=== PATIENT | female | born 1935 | race Caucasian/White ===

== ENCOUNTER 2021-12-28 14:36 | Observation (INO) | payer OTHER ==
[2021-12-28 14:59] VITALS: BMI 34.9
[2021-12-28] MEDS ORDERED: ACETAMINOPHEN 1000 MG/100 ML BAG IVPB ONE (16:08)
[2021-12-28 16:33] LABS: BASO % 0.4 % (0-2.0); EOS % 4.5 % (0-4.5); HEMATOCRIT 22.7 % (32.4-45.2); HEMOGLOBIN 7.1 GM/dL (10.7-15.3); LYMPH % 18.6 % (8-40); MCH 28.7 pg (25.7-33.7); MCHC 31.1 g/dl (32.0-36.0); MEAN CELL VOLUME 92.4 fl (80-96); MEAN PLT VOLUME 7.3 fl (7.5-11.1); MONO % 9.7 % (3.8-10.2); NEUT % 66.8 % (42.8-82.8); PLATELET COUNT 212 10^3/uL (134-434); RBC 2.46 M/mm3 (3.60-5.2); RDW 15.6 % (11.6-15.6); WHITE BLOOD COUNT 5.3 K/mm3 (4.0-10.0)
[2021-12-28] MEDS ORDERED: ACETAMINOPHEN INJECTION 100 ML IVPB ONE (16:35)
[2021-12-28 16:38] LABS: CALCIUM 8.7 mg/dL (8.5-10.1)
[2021-12-28 16:39] LABS: ALBUMIN 3.8 g/dl (3.4-5.0); BLOOD UREA NITROGEN 36.6 mg/dL (7-18)
[2021-12-28 16:41] LABS: INR 1.13 (0.83-1.09)
[2021-12-28 16:42] LABS: CREATININE 1.9 mg/dL (0.55-1.3)
[2021-12-28 16:44] LABS: BILIRUBIN,TOTAL 0.3 mg/dL (0.2-1); TOT PROT 7.1 g/dl (6.4-8.2)
[2021-12-28 16:47] LABS: N-TERMINAL BNP 2386.3 pg/ml (5-450)
[2021-12-29 08:29] LABS: BASO % 0.7 % (0-2.0); EOS % 6.5 % (0-4.5); HEMATOCRIT 27.4 % (32.4-45.2); HEMOGLOBIN 8.9 GM/dL (10.7-15.3); LYMPH % 27.7 % (8-40); MCH 29.4 pg (25.7-33.7); MCHC 32.6 g/dl (32.0-36.0); MEAN CELL VOLUME 90.3 fl (80-96); MEAN PLT VOLUME 7.4 fl (7.5-11.1); MONO % 13.7 % (3.8-10.2); NEUT % 51.4 % (42.8-82.8); PLATELET COUNT 173 10^3/uL (134-434); RBC 3.03 M/mm3 (3.60-5.2); RDW 15.1 % (11.6-15.6); WHITE BLOOD COUNT 5.2 K/mm3 (4.0-10.0)
[2021-12-29 08:39] LABS: ALBUMIN 3.7 g/dl (3.4-5.0)
[2021-12-29 08:40] LABS: BLOOD UREA NITROGEN 32.2 mg/dL (7-18); CALCIUM 8.7 mg/dL (8.5-10.1)
[2021-12-29 08:43] LABS: CREATININE 1.6 mg/dL (0.55-1.3)
[2021-12-29 08:45] LABS: BILIRUBIN,TOTAL 0.7 mg/dL (0.2-1); TOT PROT 6.6 g/dl (6.4-8.2)
[2021-12-29] MEDS ORDERED: ACETAMINOPHEN 500 MG TABLET (FP) PO PRN (11:17)
[2021-12-29] MEDS ORDERED: MAG HYDROX/AL HYDROX/SIMETH 30 ML UNIT-DOSE CUP PO ONE (11:30)
[2021-12-29 18:54] VITALS: BP 148/75; PULSE 72; TEMP 98.2
== END 2021-12-29 19:09 ==
LOC: JER 14:36 → JERBED 18:37 → J5S 12-29 00:10
PROVIDERS: ADMIT Internal Medicine; ATTEND Internal Medicine
PROC: 30233N1 Transfusion of Nonautologous Red Blood Cells into Peripheral Vein, Percutaneous Approach (ICD-10-PCS; principal; 2021-12-28)
PROC: 3E033NZ Introduction of Analgesics, Hypnotics, Sedatives into Peripheral Vein, Percutaneous Approach (ICD-10-PCS; 2021-12-28)
DX: K21.9 Gastro-esophageal reflux disease without esophagitis (principal); E03.9 Hypothyroidism, unspecified; I10 Essential (primary) hypertension; E11.9 Type 2 diabetes mellitus without complications; F25.9 Schizoaffective disorder, unspecified; F32.A Depression, unspecified; J45.909 Unspecified asthma, uncomplicated; Z88.0 Allergy status to penicillin; Z88.8 Allergy status to other drugs, medicaments and biological substances
CPT/HCPCS: 36415; 36430; 71045-TC-FY; 80053; 82272; 83880; 84484; 85025; 85610; 85730; 86850; 86900; 86901; 86922; 93005; 93010; 96374; 99285-25; C9803-CS; G0378; P9058; U0003; U0005

== ENCOUNTER 2022-01-11 18:33 | Inpatient (IN) | payer OTHER ==
[2022-01-11 20:46] LABS: BASO % 0.4 % (0-2.0); EOS % 6.5 % (0-4.5); HEMATOCRIT 26.2 % (32.4-45.2); HEMOGLOBIN 8.4 GM/dL (10.7-15.3); LYMPH % 20.9 % (8-40); MCH 29.5 pg (25.7-33.7); MCHC 32.2 g/dl (32.0-36.0); MEAN CELL VOLUME 91.4 fl (80-96); MEAN PLT VOLUME 7.5 fl (7.5-11.1); MONO % 12.2 % (3.8-10.2); PLATELET COUNT 264 10^3/uL (134-434); RBC 2.87 M/mm3 (3.60-5.2); RDW 16.4 % (11.6-15.6); RETICULOCYTES 2.69 % (0.5-1.5); WHITE BLOOD COUNT 5.6 K/mm3 (4.0-10.0)
[2022-01-11 20:56] LABS: CALCIUM 8.4 mg/dL (8.5-10.1); INR 1.35 (0.83-1.09); PROTHROMBIN TIME (PATIENT) 15.6 SEC (9.7-13.0)
[2022-01-11 20:57] LABS: ALBUMIN 3.7 g/dl (3.4-5.0); BLOOD UREA NITROGEN 56.6 mg/dL (7-18)
[2022-01-11 20:58] LABS: ACTIVATED PTT 36.5 SECONDS (25.2-36.5)
[2022-01-11 21:00] LABS: CREATININE 1.9 mg/dL (0.55-1.3)
[2022-01-11 21:02] LABS: BILIRUBIN,TOTAL 0.2 mg/dL (0.2-1); TOT PROT 6.7 g/dl (6.4-8.2)
[2022-01-11 23:40] LABS: URINE APPEARANCE CLEAR; URINE BILIRUBIN NEGATIVE (NEGATIVE); URINE COLOR YELLOW; URINE GLUCOSE (UA) NEGATIVE (NEGATIVE); URINE KETONE NEGATIVE (NEGATIVE); URINE LEUK ESTERASE NEGATIVE (NEGATIVE); URINE NITRITE NEGATIVE (NEGATIVE); URINE PROTEIN NEGATIVE (NEGATIVE); URINE UROBILINOGEN 0.2 mg/dL (0.2-1.0)
[2022-01-12] MEDS ORDERED: PRAMIPEXOLE DIHYDROCHLORIDE 0.5 MG TABLET PO ONE (02:29)
[2022-01-12] MEDS: hydrALAZINE HCL 50 MG TABLET (FP) PO SCH ×3 (06:46→22:18)
[2022-01-12] MEDS: GABAPENTIN 100 MG CAPSULE PO SCH ×3 (06:46→22:16)
[2022-01-12 09:32] LABS: BASO % 0.5 % (0-2.0); EOS % 7.7 % (0-4.5); HEMATOCRIT 25.6 % (32.4-45.2); HEMOGLOBIN 8.2 GM/dL (10.7-15.3); LYMPH % 23.6 % (8-40); MCH 28.8 pg (25.7-33.7); MCHC 31.9 g/dl (32.0-36.0); MEAN CELL VOLUME 90.5 fl (80-96); MEAN PLT VOLUME 7.4 fl (7.5-11.1); MONO % 13.1 % (3.8-10.2); NEUT % 55.1 % (42.8-82.8); PLATELET COUNT 241 10^3/uL (134-434); RBC 2.83 M/mm3 (3.60-5.2); RDW 16.8 % (11.6-15.6); WHITE BLOOD COUNT 5.6 K/mm3 (4.0-10.0)
[2022-01-12 09:40] LABS: BILIRUBIN,TOTAL 0.4 mg/dL (0.2-1)
[2022-01-12 09:41] LABS: CALCIUM 8.5 mg/dL (8.5-10.1)
[2022-01-12 09:42] LABS: ALBUMIN 3.5 g/dl (3.4-5.0); CREATININE 1.6 mg/dL (0.55-1.3)
[2022-01-12 09:43] LABS: TOT PROT 6.4 g/dl (6.4-8.2)
[2022-01-12] MEDS ORDERED: SERTRALINE HCL 50 MG TABLET (FP) PO SCH (10:00)
[2022-01-12] MEDS: SERTRALINE HCL 100 MG, SERTRALINE HCL 25 MG PO SCH (10:51)
[2022-01-12] MEDS: MULTIVITAMINS (DAILY MVI) TABLET (FP) PO SCH (10:52)
[2022-01-12] MEDS: FOLIC ACID 1 MG TABLET (FP) PO SCH (10:52)
[2022-01-12] MEDS: FERROUS SO4 325 MG TABLET (FP) PO SCH (10:52)
[2022-01-12] MEDS: amLODIPine BESYLATE 10 MG TABLET (FP) PO SCH ×3 (10:52→12:34)
[2022-01-12] MEDS: ALLOPURINOL 100 MG TABLET (FP) PO SCH (10:53)
[2022-01-12] MEDS: PANTOPRAZOLE 40 MG TABLET PO SCH (10:53)
[2022-01-12] MEDS: BUDESONIDE/FORMETEROL FUMARATE 160/4.5 mcg INHALER IH SCH ×2 (10:54→22:18)
[2022-01-12] MEDS: UMECLIDINIUM/VILANTEROL (ANORO) 62.5/25 MCG INHALER IH SCH (10:55)
[2022-01-12 13:49] LABS: N-TERMINAL BNP 1967.6 pg/ml (5-450)
[2022-01-12] MEDS: ACETAMINOPHEN 1000 MG/100 ML BAG IVPB PRN ×2 (14:27→22:18)
[2022-01-12] MEDS: ARIPiprazole 10 MG TABLET PO SCH (14:28)
[2022-01-12] MEDS ORDERED: IRON SUCROSE INJECTION 200 MG in SODIUM CHLORIDE 90 ML IVPB ONE (15:21)
[2022-01-12] MEDS ORDERED: BISACODYL 5 MG TABLET.DR (FP) PO ONE (16:00)
[2022-01-12] MEDS ORDERED: PEG 3350/NA SULF BICARB CL/KCL 4000 ML SOLN.RECON PO ONE (17:00)
[2022-01-12] MEDS ORDERED: POLYETHYLENE GLYCOL (HEALTHYLAX) 3350 17 GM PACKET PO ONE (18:15)
[2022-01-12] MEDS ORDERED: DOCUSATE SODIUM 100 MG CAPSULE (FP) PO SCH (22:00)
[2022-01-12] MEDS: ATORVASTATIN CA 10 MG TABLET (FP) PO SCH (22:16)
[2022-01-12] MEDS: MONTELUKAST NA 10 MG TABLET PO SCH (22:16)
[2022-01-12] MEDS: traZODone HCL 50 MG TABLET (FP) PO SCH (22:17)
[2022-01-12] MEDS: PRAMIPEXOLE DIHYDROCHLORIDE 0.5 MG TABLET PO SCH (22:17)
[2022-01-13] MEDS: ACETAMINOPHEN 1000 MG/100 ML BAG IVPB PRN (05:52)
[2022-01-13] MEDS: hydrALAZINE HCL 50 MG TABLET (FP) PO SCH ×3 (05:52→21:34)
[2022-01-13] MEDS: GABAPENTIN 100 MG CAPSULE PO SCH ×3 (05:52→21:33)
[2022-01-13] MEDS: SERTRALINE HCL 100 MG, SERTRALINE HCL 25 MG PO SCH (09:37)
[2022-01-13] MEDS: UMECLIDINIUM/VILANTEROL (ANORO) 62.5/25 MCG INHALER IH SCH (09:37)
[2022-01-13] MEDS: BUDESONIDE/FORMETEROL FUMARATE 160/4.5 mcg INHALER IH SCH ×2 (09:37→21:36)
[2022-01-13] MEDS: MULTIVITAMINS (DAILY MVI) TABLET (FP) PO SCH (09:38)
[2022-01-13] MEDS: ALLOPURINOL 100 MG TABLET (FP) PO SCH (09:38)
[2022-01-13] MEDS: PANTOPRAZOLE 40 MG TABLET PO SCH (09:38)
[2022-01-13] MEDS: FOLIC ACID 1 MG TABLET (FP) PO SCH (09:38)
[2022-01-13] MEDS: FERROUS SO4 325 MG TABLET (FP) PO SCH (09:41)
[2022-01-13] MEDS: ARIPiprazole 10 MG TABLET PO SCH (09:42)
[2022-01-13] MEDS: POLYETHYLENE GLYCOL (HEALTHYLAX) 3350 17 GM PACKET PO SCH (09:42)
[2022-01-13 10:26] LABS: BASO % 0.4 % (0-2.0); EOS % 2.6 % (0-4.5); HEMATOCRIT 28.2 % (32.4-45.2); LYMPH % 8.3 % (8-40); MCHC 31.9 g/dl (32.0-36.0); MEAN CELL VOLUME 90.9 fl (80-96); MEAN PLT VOLUME 7.5 fl (7.5-11.1); MONO % 7.9 % (3.8-10.2); NEUT % 80.8 % (42.8-82.8); PLATELET COUNT 237 10^3/uL (134-434); RDW 16.7 % (11.6-15.6); WHITE BLOOD COUNT 8.1 K/mm3 (4.0-10.0)
[2022-01-13 10:36] LABS: INR 1.14 (0.83-1.09); PROTHROMBIN TIME (PATIENT) 13.1 SEC (9.7-13.0)
[2022-01-13 10:56] LABS: CALCIUM 8.9 mg/dL (8.5-10.1)
[2022-01-13 10:57] LABS: BLOOD UREA NITROGEN 37.4 mg/dL (7-18)
[2022-01-13 11:00] LABS: CREATININE 1.4 mg/dL (0.55-1.3)
[2022-01-13] MEDS: ALBUTEROL SO4 2.5/IPRATROPIUM 0.5 INH SOL 3 ML VIAL.NEB. NEB SCH ×3 (12:19→20:15)
[2022-01-13] MEDS ORDERED: PHENAZOPYRIDINE HCL 100 MG TABLET (FP) PO ONE (16:24)
[2022-01-13] MEDS: ATORVASTATIN CA 10 MG TABLET (FP) PO SCH (21:33)
[2022-01-13] MEDS: MONTELUKAST NA 10 MG TABLET PO SCH (21:33)
[2022-01-13] MEDS: traZODone HCL 50 MG TABLET (FP) PO SCH (21:34)
[2022-01-13] MEDS: PRAMIPEXOLE DIHYDROCHLORIDE 0.5 MG TABLET PO SCH (21:34)
[2022-01-14] MEDS: hydrALAZINE HCL 50 MG TABLET (FP) PO SCH ×3 (06:11→22:07)
[2022-01-14] MEDS: GABAPENTIN 100 MG CAPSULE PO SCH ×3 (06:12→22:06)
[2022-01-14] MEDS: ALBUTEROL SO4 2.5/IPRATROPIUM 0.5 INH SOL 3 ML VIAL.NEB. NEB SCH ×4 (07:58→21:10)
[2022-01-14] MEDS: ARIPiprazole 10 MG TABLET PO SCH (10:13)
[2022-01-14] MEDS: PANTOPRAZOLE 40 MG TABLET PO SCH (10:14)
[2022-01-14] MEDS: MULTIVITAMINS (DAILY MVI) TABLET (FP) PO SCH (10:14)
[2022-01-14] MEDS: FERROUS SO4 325 MG TABLET (FP) PO SCH (10:14)
[2022-01-14] MEDS: FOLIC ACID 1 MG TABLET (FP) PO SCH (10:14)
[2022-01-14] MEDS: POLYETHYLENE GLYCOL (HEALTHYLAX) 3350 17 GM PACKET PO SCH (10:14)
[2022-01-14] MEDS: BUDESONIDE/FORMETEROL FUMARATE 160/4.5 mcg INHALER IH SCH ×2 (10:14→22:08)
[2022-01-14] MEDS: SERTRALINE HCL 100 MG, SERTRALINE HCL 25 MG PO SCH (10:15)
[2022-01-14] MEDS: ALLOPURINOL 100 MG TABLET (FP) PO SCH (10:15)
[2022-01-14] MEDS ORDERED: IRON SUCROSE INJECTION 200 MG in SODIUM CHLORIDE 90 ML IVPB ONE (11:30)
[2022-01-14 17:03] LABS: EPI CELLS 7 /uL (0-25.1); HYALINE CASTS 4 /uL (0-3.1); PH,URINE 6.5 (5.0-8.0); URINE APPEARANCE TURBID; URINE BACTERIA >9,000 /uL (0-1359); URINE BILIRUBIN NEGATIVE (NEGATIVE); URINE COLOR DK YELLOW; URINE GLUCOSE (UA) NEGATIVE (NEGATIVE); URINE KETONE NEGATIVE (NEGATIVE); URINE LEUK ESTERASE 3+ (NEGATIVE); URINE NITRITE POSITIVE (NEGATIVE); URINE PROTEIN 1+ (NEGATIVE); URINE RBC 94 /uL (0-23.9); URINE WBC 3594 /uL (0-25.8)
[2022-01-14] MEDS: ACETAMINOPHEN 325 MG TABLET (FP) PO PRN (20:56)
[2022-01-14] MEDS: ATORVASTATIN CA 10 MG TABLET (FP) PO SCH (22:07)
[2022-01-14] MEDS: MONTELUKAST NA 10 MG TABLET PO SCH (22:07)
[2022-01-14] MEDS: PRAMIPEXOLE DIHYDROCHLORIDE 0.5 MG TABLET PO SCH (22:07)
[2022-01-14] MEDS: traZODone HCL 50 MG TABLET (FP) PO SCH (22:08)
[2022-01-15] MEDS: hydrALAZINE HCL 50 MG TABLET (FP) PO SCH ×3 (06:41→22:15)
[2022-01-15] MEDS: GABAPENTIN 100 MG CAPSULE PO SCH ×3 (06:41→22:14)
[2022-01-15] MEDS: ACETAMINOPHEN 325 MG TABLET (FP) PO PRN (06:44)
[2022-01-15] MEDS: ALBUTEROL SO4 2.5/IPRATROPIUM 0.5 INH SOL 3 ML VIAL.NEB. NEB SCH ×4 (07:30→20:13)
[2022-01-15] MEDS: SERTRALINE HCL 100 MG, SERTRALINE HCL 25 MG PO SCH (09:22)
[2022-01-15] MEDS: MULTIVITAMINS (DAILY MVI) TABLET (FP) PO SCH (09:23)
[2022-01-15] MEDS: PANTOPRAZOLE 40 MG TABLET PO SCH (09:23)
[2022-01-15] MEDS: FERROUS SO4 325 MG TABLET (FP) PO SCH (09:23)
[2022-01-15] MEDS: ALLOPURINOL 100 MG TABLET (FP) PO SCH (09:23)
[2022-01-15] MEDS: BUDESONIDE/FORMETEROL FUMARATE 160/4.5 mcg INHALER IH SCH ×2 (09:24→22:15)
[2022-01-15] MEDS: FOLIC ACID 1 MG TABLET (FP) PO SCH (09:24)
[2022-01-15] MEDS: ARIPiprazole 10 MG TABLET PO SCH (09:26)
[2022-01-15] MEDS: POLYETHYLENE GLYCOL (HEALTHYLAX) 3350 17 GM PACKET PO SCH (09:26)
[2022-01-15] MEDS ORDERED: BISACODYL 5 MG TABLET.DR (FP) PO ONE (16:00)
[2022-01-15] MEDS ORDERED: PEG 3350/NA SULF BICARB CL/KCL 4000 ML SOLN.RECON PO ONE (17:00)
[2022-01-15] MEDS ORDERED: ONDANSETRON 4 MG/2 ML VIAL IVPUSH ONE (21:05)
[2022-01-15] MEDS: traZODone HCL 50 MG TABLET (FP) PO SCH (22:15)
[2022-01-15] MEDS: MONTELUKAST NA 10 MG TABLET PO SCH (22:15)
[2022-01-15] MEDS: PRAMIPEXOLE DIHYDROCHLORIDE 0.5 MG TABLET PO SCH (22:15)
[2022-01-15] MEDS: ATORVASTATIN CA 10 MG TABLET (FP) PO SCH (22:15)
[2022-01-16] MEDS: hydrALAZINE HCL 50 MG TABLET (FP) PO SCH ×3 (06:15→21:38)
[2022-01-16] MEDS: GABAPENTIN 100 MG CAPSULE PO SCH ×3 (06:15→21:39)
[2022-01-16] MEDS: ACETAMINOPHEN 325 MG TABLET (FP) PO PRN (06:16)
[2022-01-16] MEDS: ALBUTEROL SO4 2.5/IPRATROPIUM 0.5 INH SOL 3 ML VIAL.NEB. NEB SCH ×5 (07:35→21:22)
[2022-01-16] MEDS ORDERED: methylPREDNISolone NA SUCC 40 MG/1 ML VIAL IVPUSH ONE (08:00)
[2022-01-16] MEDS: MULTIVITAMINS (DAILY MVI) TABLET (FP) PO SCH (10:22)
[2022-01-16] MEDS: PANTOPRAZOLE 40 MG TABLET PO SCH (10:22)
[2022-01-16] MEDS: ALLOPURINOL 100 MG TABLET (FP) PO SCH (10:22)
[2022-01-16] MEDS: FOLIC ACID 1 MG TABLET (FP) PO SCH (10:22)
[2022-01-16] MEDS: FERROUS SO4 325 MG TABLET (FP) PO SCH (10:22)
[2022-01-16] MEDS: ARIPiprazole 10 MG TABLET PO SCH (10:22)
[2022-01-16] MEDS: POLYETHYLENE GLYCOL (HEALTHYLAX) 3350 17 GM PACKET PO SCH (10:23)
[2022-01-16] MEDS: SERTRALINE HCL 100 MG, SERTRALINE HCL 25 MG PO SCH (10:23)
[2022-01-16] MEDS: BUDESONIDE/FORMETEROL FUMARATE 160/4.5 mcg INHALER IH SCH ×2 (10:23→21:45)
[2022-01-16 11:52] LABS: HEMATOCRIT 28.2 % (32.4-45.2); MCH 29.1 pg (25.7-33.7); MCHC 31.9 g/dl (32.0-36.0); MEAN CELL VOLUME 91.5 fl (80-96); MEAN PLT VOLUME 7.5 fl (7.5-11.1); PLATELET COUNT 271 10^3/uL (134-434); RBC 3.08 M/mm3 (3.60-5.2); RDW 16.7 % (11.6-15.6); WHITE BLOOD COUNT 8.1 K/mm3 (4.0-10.0)
[2022-01-16 11:56] LABS: INR 1.1 (0.83-1.09); PROTHROMBIN TIME (PATIENT) 12.7 SEC (9.7-13.0)
[2022-01-16 12:09] LABS: BLOOD UREA NITROGEN 29.9 mg/dL (7-18); CALCIUM 8.9 mg/dL (8.5-10.1)
[2022-01-16 12:13] LABS: CREATININE 1.5 mg/dL (0.55-1.3)
[2022-01-16 12:27] LABS: ANISOCYTOSIS 0; HELMET CELLS 0; HOWELL-JOLLY BODIES 0; MACROCYTOSIS 0; OVALOCYTE 0; ROULEAU 0; SICKELED CELLS 0; TARGET CELLS 0; TEAR DROP CELLS 0; TOXIC GRANULATION 0
[2022-01-16] MEDS ORDERED: TETRACAINE/BENZOCAINE/BUTAMBEN 20 GM SPR TP ONE ×2 (13:20→13:46)
[2022-01-16] MEDS ORDERED: ONDANSETRON 4 MG/2 ML VIAL IVPUSH ONE (17:17)
[2022-01-16] MEDS: ATORVASTATIN CA 10 MG TABLET (FP) PO SCH (21:38)
[2022-01-16] MEDS: MONTELUKAST NA 10 MG TABLET PO SCH (21:38)
[2022-01-16] MEDS: traZODone HCL 50 MG TABLET (FP) PO SCH (21:39)
[2022-01-16] MEDS: PRAMIPEXOLE DIHYDROCHLORIDE 0.5 MG TABLET PO SCH (21:41)
[2022-01-17] MEDS ORDERED: TRIMETHOBENZAMIDE HCL 200MG/2ML INJ IM PRN (00:07)
[2022-01-17] MEDS: hydrALAZINE HCL 50 MG TABLET (FP) PO SCH ×3 (06:10→23:28)
[2022-01-17] MEDS: GABAPENTIN 100 MG CAPSULE PO SCH ×3 (06:10→23:28)
[2022-01-17] MEDS: ALBUTEROL SO4 2.5/IPRATROPIUM 0.5 INH SOL 3 ML VIAL.NEB. NEB SCH ×4 (07:45→20:15)
[2022-01-17] MEDS: POLYETHYLENE GLYCOL (HEALTHYLAX) 3350 17 GM PACKET PO SCH (09:10)
[2022-01-17] MEDS: SERTRALINE HCL 100 MG, SERTRALINE HCL 25 MG PO SCH (09:11)
[2022-01-17] MEDS: ALLOPURINOL 100 MG TABLET (FP) PO SCH (09:11)
[2022-01-17] MEDS: BUDESONIDE/FORMETEROL FUMARATE 160/4.5 mcg INHALER IH SCH ×2 (09:11→23:32)
[2022-01-17] MEDS: PANTOPRAZOLE 40 MG TABLET PO SCH (09:11)
[2022-01-17] MEDS: MULTIVITAMINS (DAILY MVI) TABLET (FP) PO SCH (09:11)
[2022-01-17] MEDS: ARIPiprazole 10 MG TABLET PO SCH (09:11)
[2022-01-17] MEDS: FERROUS SO4 325 MG TABLET (FP) PO SCH (09:11)
[2022-01-17] MEDS: FOLIC ACID 1 MG TABLET (FP) PO SCH (09:11)
[2022-01-17] MEDS: METOCLOPRAMIDE HCL INJECTION 10 MG/2 ML VIAL IVPUSH SCH ×2 (12:05→18:03)
[2022-01-17] MEDS: clonazePAM 0.5 MG TABLET PO PRN (18:03)
[2022-01-17] MEDS: PRAMIPEXOLE DIHYDROCHLORIDE 0.5 MG TABLET PO SCH (23:29)
[2022-01-17] MEDS: MONTELUKAST NA 10 MG TABLET PO SCH (23:29)
[2022-01-17] MEDS: ATORVASTATIN CA 10 MG TABLET (FP) PO SCH (23:29)
[2022-01-17] MEDS: traZODone HCL 50 MG TABLET (FP) PO SCH (23:31)
[2022-01-18] MEDS: METOCLOPRAMIDE HCL INJECTION 10 MG/2 ML VIAL IVPUSH SCH ×3 (03:02→17:25)
[2022-01-18] MEDS: hydrALAZINE HCL 50 MG TABLET (FP) PO SCH ×3 (06:01→21:56)
[2022-01-18] MEDS: GABAPENTIN 100 MG CAPSULE PO SCH ×3 (06:01→21:55)
[2022-01-18] MEDS: ALBUTEROL SO4 2.5/IPRATROPIUM 0.5 INH SOL 3 ML VIAL.NEB. NEB SCH (07:21)
[2022-01-18] MEDS: PANTOPRAZOLE 40 MG TABLET PO SCH (12:29)
[2022-01-18] MEDS: POLYETHYLENE GLYCOL (HEALTHYLAX) 3350 17 GM PACKET PO SCH (12:29)
[2022-01-18] MEDS: FERROUS SO4 325 MG TABLET (FP) PO SCH (12:30)
[2022-01-18] MEDS: FOLIC ACID 1 MG TABLET (FP) PO SCH (12:30)
[2022-01-18] MEDS: ARIPiprazole 10 MG TABLET PO SCH (12:31)
[2022-01-18] MEDS: BUDESONIDE/FORMETEROL FUMARATE 160/4.5 mcg INHALER IH SCH ×2 (12:31→21:57)
[2022-01-18] MEDS: MULTIVITAMINS (DAILY MVI) TABLET (FP) PO SCH (12:32)
[2022-01-18] MEDS: SERTRALINE HCL 100 MG, SERTRALINE HCL 25 MG PO SCH (12:33)
[2022-01-18] MEDS: ALLOPURINOL 100 MG TABLET (FP) PO SCH (12:33)
[2022-01-18] MEDS: MONTELUKAST NA 10 MG TABLET PO SCH (21:54)
[2022-01-18] MEDS: PRAMIPEXOLE DIHYDROCHLORIDE 0.5 MG TABLET PO SCH (21:55)
[2022-01-18] MEDS: ATORVASTATIN CA 10 MG TABLET (FP) PO SCH (21:55)
[2022-01-18] MEDS: traZODone HCL 50 MG TABLET (FP) PO SCH (21:56)
[2022-01-19] MEDS: METOCLOPRAMIDE HCL INJECTION 10 MG/2 ML VIAL IVPUSH SCH ×3 (01:34→18:02)
[2022-01-19] MEDS: hydrALAZINE HCL 50 MG TABLET (FP) PO SCH ×3 (07:15→21:46)
[2022-01-19] MEDS: GABAPENTIN 100 MG CAPSULE PO SCH ×3 (07:15→21:45)
[2022-01-19 08:22] LABS: BASO % 0.1 % (0-2.0); EOS % 0.1 % (0-4.5); HEMATOCRIT 29.7 % (32.4-45.2); HEMOGLOBIN 9.6 GM/dL (10.7-15.3); LYMPH % 17.8 % (8-40); MCH 29.5 pg (25.7-33.7); MCHC 32.2 g/dl (32.0-36.0); MEAN CELL VOLUME 91.4 fl (80-96); MEAN PLT VOLUME 7.1 fl (7.5-11.1); MONO % 10.6 % (3.8-10.2); NEUT % 71.4 % (42.8-82.8); PLATELET COUNT 242 10^3/uL (134-434); RBC 3.26 M/mm3 (3.60-5.2); RDW 17.2 % (11.6-15.6)
[2022-01-19 08:55] LABS: ALBUMIN 3.2 g/dl (3.4-5.0); BLOOD UREA NITROGEN 35.7 mg/dL (7-18); CALCIUM 8.4 mg/dL (8.5-10.1)
[2022-01-19 08:57] LABS: CREATININE 1.5 mg/dL (0.55-1.3)
[2022-01-19 08:59] LABS: BILIRUBIN,TOTAL 0.5 mg/dL (0.2-1); TOT PROT 6.1 g/dl (6.4-8.2)
[2022-01-19] MEDS: MULTIVITAMINS (DAILY MVI) TABLET (FP) PO SCH (09:42)
[2022-01-19] MEDS: PANTOPRAZOLE 40 MG TABLET PO SCH (09:42)
[2022-01-19] MEDS: FERROUS SO4 325 MG TABLET (FP) PO SCH (09:43)
[2022-01-19] MEDS: POLYETHYLENE GLYCOL (HEALTHYLAX) 3350 17 GM PACKET PO SCH (09:43)
[2022-01-19] MEDS: ALLOPURINOL 100 MG TABLET (FP) PO SCH (09:43)
[2022-01-19] MEDS: SERTRALINE HCL 100 MG, SERTRALINE HCL 25 MG PO SCH (09:44)
[2022-01-19] MEDS: BUDESONIDE/FORMETEROL FUMARATE 160/4.5 mcg INHALER IH SCH ×2 (09:45→21:46)
[2022-01-19] MEDS: FOLIC ACID 1 MG TABLET (FP) PO SCH (09:45)
[2022-01-19] MEDS: ARIPiprazole 10 MG TABLET PO SCH (09:45)
[2022-01-19] MEDS ORDERED: POTASSIUM CHLORIDE ORAL LIQUID 20 MEQ/15 ML PO ONE (11:45)
[2022-01-19] MEDS: clonazePAM 0.5 MG TABLET PO PRN (12:13)
[2022-01-19 13:41] VITALS: BMI 34.0
[2022-01-19] MEDS ORDERED: TAMSULOSIN HCL 0.4 MG CAP PO ONE (14:15)
[2022-01-19] MEDS ORDERED: metoPROLOL SUCCINATE 25 MG TAB.SR.24H (FP) PO ONE (14:15)
[2022-01-19] MEDS: ATORVASTATIN CA 10 MG TABLET (FP) PO SCH (21:45)
[2022-01-19] MEDS: MONTELUKAST NA 10 MG TABLET PO SCH (21:46)
[2022-01-19] MEDS: PRAMIPEXOLE DIHYDROCHLORIDE 0.5 MG TABLET PO SCH (21:46)
[2022-01-19] MEDS: traZODone HCL 50 MG TABLET (FP) PO SCH (21:46)
[2022-01-20] MEDS: METOCLOPRAMIDE HCL INJECTION 10 MG/2 ML VIAL IVPUSH SCH ×3 (01:19→17:16)
[2022-01-20] MEDS: hydrALAZINE HCL 50 MG TABLET (FP) PO SCH ×2 (06:22→16:02)
[2022-01-20] MEDS: GABAPENTIN 100 MG CAPSULE PO SCH ×2 (06:22→16:02)
[2022-01-20 08:09] VITALS: RESP 18
[2022-01-20 08:10] LABS: HEMATOCRIT 28.4 % (32.4-45.2); HEMOGLOBIN 9.2 GM/dL (10.7-15.3); MCH 29.6 pg (25.7-33.7); MCHC 32.5 g/dl (32.0-36.0); MEAN CELL VOLUME 90.9 fl (80-96); MEAN PLT VOLUME 7.2 fl (7.5-11.1); PLATELET COUNT 218 10^3/uL (134-434); RBC 3.12 M/mm3 (3.60-5.2); RDW 16.9 % (11.6-15.6); WHITE BLOOD COUNT 6.5 K/mm3 (4.0-10.0)
[2022-01-20] MEDS ORDERED: TAMSULOSIN HCL 0.4 MG CAP PO SCH (08:30)
[2022-01-20] MEDS: FERROUS SO4 325 MG TABLET (FP) PO SCH (09:23)
[2022-01-20] MEDS: ARIPiprazole 10 MG TABLET PO SCH (09:23)
[2022-01-20] MEDS: SERTRALINE HCL 100 MG, SERTRALINE HCL 25 MG PO SCH (09:24)
[2022-01-20] MEDS: FOLIC ACID 1 MG TABLET (FP) PO SCH (09:24)
[2022-01-20] MEDS: PANTOPRAZOLE 40 MG TABLET PO SCH (09:25)
[2022-01-20] MEDS: ALLOPURINOL 100 MG TABLET (FP) PO SCH (09:25)
[2022-01-20] MEDS: POLYETHYLENE GLYCOL (HEALTHYLAX) 3350 17 GM PACKET PO SCH (09:26)
[2022-01-20] MEDS: BUDESONIDE/FORMETEROL FUMARATE 160/4.5 mcg INHALER IH SCH (09:27)
[2022-01-20] MEDS: MULTIVITAMINS (DAILY MVI) TABLET (FP) PO SCH (09:28)
[2022-01-20] MEDS ORDERED: LISINOPRIL 10 MG TABLET PO SCH (10:00)
[2022-01-20] MEDS ORDERED: metoPROLOL SUCCINATE 25 MG TAB.SR.24H (FP) PO SCH (10:00)
[2022-01-20] MEDS: clonazePAM 0.5 MG TABLET PO PRN (12:59)
[2022-01-20] MEDS: ACETAMINOPHEN 325 MG TABLET (FP) PO PRN (18:40)
[2022-01-20 23:19] VITALS: BP 124/79; PULSE 78; TEMP 98.1
== END 2022-01-20 22:00 | DRG 378 ==
LOC: JER 18:33 → INTOOBSV 21:29 → JERBED 21:29 → OBSVTOIN 23:30 → J7W 01-12 03:37
PROVIDERS: ADMIT Internal Medicine; ATTEND Internal Medicine
PROC: 0DB98ZX Excision of Duodenum, Via Natural or Artificial Opening Endoscopic, Diagnostic (ICD-10-PCS; 2022-01-18)
PROC: 0DB68ZX Excision of Stomach, Via Natural or Artificial Opening Endoscopic, Diagnostic (ICD-10-PCS; principal; 2022-01-18 11:00)
DX: K29.51 Unspecified chronic gastritis with bleeding (principal); J96.11 Chronic respiratory failure with hypoxia; N39.0 Urinary tract infection, site not specified; D64.9 Anemia, unspecified; E11.42 Type 2 diabetes mellitus with diabetic polyneuropathy; J44.9 Chronic obstructive pulmonary disease, unspecified; E03.9 Hypothyroidism, unspecified; J45.909 Unspecified asthma, uncomplicated; F32.A Depression, unspecified; I10 Essential (primary) hypertension; F20.9 Schizophrenia, unspecified; E05.90 Thyrotoxicosis, unspecified without thyrotoxic crisis or storm; K21.9 Gastro-esophageal reflux disease without esophagitis; I48.91 Unspecified atrial fibrillation
CPT/HCPCS: 36415; 71045-TC-FY; 80048; 80053; 81003; 82272; 82607; 82728; 82746; 82962; 83540; 83550; 83880; 84484; 85025; 85027; 85045; 85610; 85730; 86850; 86900; 86901; 87086; 87186; 88305-TC; 93005; 93010; 94640; 97116-GP; 97161-GP; 99285-25; C9803-CS; G0378; J1756; U0003; U0005

== ENCOUNTER 2022-03-02 11:10 | Observation (INO) | payer OTHER ==
[2022-03-02 11:48] VITALS: BMI 34.0
[2022-03-02 13:50] LABS: BASO % 0.6 % (0-2.0); EOS % 11.4 % (0-4.5); HEMATOCRIT 28.7 % (32.4-45.2); LYMPH % 15.5 % (8-40); MCH 29.7 pg (25.7-33.7); MCHC 31.4 g/dl (32.0-36.0); MEAN CELL VOLUME 94.5 fl (80-96); MEAN PLT VOLUME 8.1 fl (7.5-11.1); MONO % 8.9 % (3.8-10.2); NEUT % 63.6 % (42.8-82.8); PLATELET COUNT 186 10^3/uL (134-434); RBC 3.04 M/mm3 (3.60-5.2); RDW 19.2 % (11.6-15.6); WHITE BLOOD COUNT 6.3 K/mm3 (4.0-10.0)
[2022-03-02 13:59] LABS: INR 1.07 (0.83-1.09); PROTHROMBIN TIME (PATIENT) 12.3 SEC (9.7-13.0)
[2022-03-02 14:02] LABS: ACTIVATED PTT 32.4 SECONDS (25.2-36.5)
[2022-03-02 14:10] LABS: CALCIUM 8.5 mg/dL (8.5-10.1)
[2022-03-02 14:11] LABS: ALBUMIN 3.5 g/dl (3.4-5.0); BLOOD UREA NITROGEN 25.2 mg/dL (7-18); MAGNESIUM 2.5 mg/dL (1.8-2.4)
[2022-03-02 14:14] LABS: CREATININE 1.5 mg/dL (0.55-1.3); PHOSPHOROUS 3.6 mg/dL (2.5-4.9)
[2022-03-02 14:15] LABS: BILIRUBIN,TOTAL 0.3 mg/dL (0.2-1)
[2022-03-02 14:16] LABS: TOT PROT 6.6 g/dl (6.4-8.2)
[2022-03-02 14:19] LABS: N-TERMINAL BNP 2720.6 pg/ml (5-450)
[2022-03-02] MEDS ORDERED: ACETAMINOPHEN 1000 MG/100 ML BAG IVPB ONE (14:58)
[2022-03-02 15:10] LABS: EPI CELLS 2 /uL (0-25.1); HYALINE CASTS 1 /uL (0-3.1); URINE APPEARANCE CLOUDY; URINE BACTERIA >9,000 /uL (0-1359); URINE BILIRUBIN NEGATIVE (NEGATIVE); URINE COLOR YELLOW; URINE GLUCOSE (UA) NEGATIVE (NEGATIVE); URINE KETONE NEGATIVE (NEGATIVE); URINE LEUK ESTERASE 3+ (NEGATIVE); URINE NITRITE NEGATIVE (NEGATIVE); URINE PROTEIN TRACE (NEGATIVE); URINE RBC 26 /uL (0-23.9); URINE UROBILINOGEN 0.2 mg/dL (0.2-1.0); URINE WBC 3930 /uL (0-25.8)
[2022-03-02] MEDS ORDERED: ACETAMINOPHEN INJECTION 100 ML IVPB ONE (15:20)
[2022-03-02] MEDS ORDERED: CEFTRIAXONE 1,000 MG in DEXTROSE 5%-WATER - 50 ML IVPB ONE (15:57)
[2022-03-02] MEDS ORDERED: CEFTRIAXONE 1 GM/50 ML BAG ONE (16:03)
[2022-03-02] MEDS ORDERED: HEPARIN NA (PORCINE) 5,000 UNITS/ML 1ML VIAL ONE (21:19)
[2022-03-02] MEDS: INSULIN SLIDING SCALE (NOVOLOG) 1 VIAL SQ SCH (21:42)
[2022-03-02] MEDS: HEPARIN NA (PORCINE) 5,000 UNITS/ML 1ML VIAL SQ SCH (21:42)
[2022-03-02 21:58] VITALS: TEMP 97.6
[2022-03-03] MEDS ORDERED: HEPARIN NA (PORCINE) 5,000 UNITS/ML 1ML VIAL ONE ×2 (05:42→13:06)
[2022-03-03] MEDS: HEPARIN NA (PORCINE) 5,000 UNITS/ML 1ML VIAL SQ SCH ×2 (05:55→13:10)
[2022-03-03 07:25] LABS: BASO % 0.4 % (0-2.0); EOS % 7.6 % (0-4.5); HEMATOCRIT 29.5 % (32.4-45.2); HEMOGLOBIN 9.8 GM/dL (10.7-15.3); LYMPH % 10.5 % (8-40); MCHC 33.3 g/dl (32.0-36.0); MEAN CELL VOLUME 93.1 fl (80-96); MEAN PLT VOLUME 7.3 fl (7.5-11.1); MONO % 8.3 % (3.8-10.2); NEUT % 73.2 % (42.8-82.8); PLATELET COUNT 179 10^3/uL (134-434); RBC 3.17 M/mm3 (3.60-5.2); RDW 18.7 % (11.6-15.6); WHITE BLOOD COUNT 8.8 K/mm3 (4.0-10.0)
[2022-03-03] MEDS: INSULIN SLIDING SCALE (NOVOLOG) 1 VIAL SQ SCH ×3 (07:47→16:42)
[2022-03-03 07:50] LABS: BLOOD UREA NITROGEN 23.1 mg/dL (7-18); CALCIUM 8.9 mg/dL (8.5-10.1)
[2022-03-03 07:53] LABS: CREATININE 1.4 mg/dL (0.55-1.3)
[2022-03-03] MEDS ORDERED: CEFTRIAXONE 1 GM/50 ML BAG ONE (13:06)
[2022-03-03] MEDS ORDERED: CEFTRIAXONE 1 GM in DEXTROSE 5%-WATER - 50 ML IVPB SCH (14:00)
[2022-03-03 16:36] VITALS: PULSE 77
[2022-03-03 18:24] VITALS: BP 161/75; RESP 16
== END 2022-03-03 18:51 ==
LOC: JER 11:10 → JERBED 19:18
PROVIDERS: ADMIT Internal Medicine; ATTEND Internal Medicine
PROC: 3E03329 Introduction of Other Anti-infective into Peripheral Vein, Percutaneous Approach (ICD-10-PCS; principal; 2022-03-02)
PROC: 3E023GC Introduction of Other Therapeutic Substance into Muscle, Percutaneous Approach (ICD-10-PCS; 2022-03-02)
DX: J44.9 Chronic obstructive pulmonary disease, unspecified (principal); N39.0 Urinary tract infection, site not specified; F20.9 Schizophrenia, unspecified; E03.9 Hypothyroidism, unspecified; K21.9 Gastro-esophageal reflux disease without esophagitis; E11.9 Type 2 diabetes mellitus without complications; D64.9 Anemia, unspecified; I10 Essential (primary) hypertension; I48.91 Unspecified atrial fibrillation
CPT/HCPCS: 36415; 71045-TC-FY; 74176-TC; 80048; 80053; 81003; 82272; 82962; 83735; 83880; 84100; 84484; 85025; 85610; 85730; 86850; 86900; 86901; 87086; 87186; 93005; 93010; 96365; 96366; 96372; 96375; 99285-25; C9803-CS; G0378; J1644; U0003; U0005

== ENCOUNTER 2022-03-22 18:45 | Inpatient (IN) | payer OTHER ==
[2022-03-22] MEDS ORDERED: clonazePAM 0.5 MG TABLET PO ONE (20:50)
[2022-03-22] MEDS ORDERED: clonazePAM 0.5 MG TABLET ONE (21:02)
[2022-03-22 22:13] LABS: BASO % 0.3 % (0-2.0); EOS % 10.2 % (0-4.5); HEMATOCRIT 30.3 % (32.4-45.2); HEMOGLOBIN 9.8 GM/dL (10.7-15.3); LYMPH % 25.3 % (8-40); MCHC 32.4 g/dl (32.0-36.0); MEAN CELL VOLUME 92.5 fl (80-96); MEAN PLT VOLUME 7.6 fl (7.5-11.1); MONO % 9.2 % (3.8-10.2); PLATELET COUNT 168 10^3/uL (134-434); RBC 3.28 M/mm3 (3.60-5.2); RDW 18.5 % (11.6-15.6); WHITE BLOOD COUNT 5.5 K/mm3 (4.0-10.0)
[2022-03-22 22:16] LABS: VENOUS BASE EXCESS 2.4 mmol/L (-2-2); VENOUS O2 SATURATION 79.7 % (70-80); VENOUS PH 7.306 (7.310-7.410)
[2022-03-22 22:42] LABS: ALBUMIN 3.8 g/dl (3.4-5.0); BLOOD UREA NITROGEN 31.2 mg/dL (7-18); CALCIUM 8.9 mg/dL (8.5-10.1); MAGNESIUM 2.5 mg/dL (1.8-2.4)
[2022-03-22 22:46] LABS: CREATININE 1.5 mg/dL (0.55-1.3)
[2022-03-22 22:47] LABS: BILIRUBIN,TOTAL 0.4 mg/dL (0.2-1); TOT PROT 7.2 g/dl (6.4-8.2)
[2022-03-22 22:51] LABS: N-TERMINAL BNP 1596.6 pg/ml (5-450)
[2022-03-23] MEDS ORDERED: ARIPiprazole 10 MG TABLET PO SCH (10:00)
[2022-03-23] MEDS: BISACODYL 5 MG TABLET.DR (FP) PO SCH (12:27)
[2022-03-23] MEDS ORDERED: PANTOPRAZOLE 40 MG TABLET PO ONE ×2 (12:32→12:33)
[2022-03-23] MEDS ORDERED: metoPROLOL SUCCINATE 25 MG TAB.SR.24H (FP) PO ONE (12:34)
[2022-03-23] MEDS ORDERED: amLODIPine BESYLATE 10 MG TABLET (FP) ONE (12:34)
[2022-03-23] MEDS ORDERED: LISINOPRIL 10 MG TABLET ONE (12:34)
[2022-03-23] MEDS ORDERED: ENOXAPARIN NA (PORCINE) 40 MG/0.4 ML DISP.SYRIN SQ ONE (12:34)
[2022-03-23] MEDS ORDERED: SIMETHICONE 80 MG TAB.CHEW (FP) ONE (12:34)
[2022-03-23] MEDS ORDERED: GABAPENTIN 100 MG CAPSULE ONE (12:39)
[2022-03-23] MEDS: PANTOPRAZOLE 40 MG TABLET PO SCH ×2 (12:52→22:33)
[2022-03-23] MEDS: BUDESONIDE/FORMETEROL FUMARATE 160/4.5 mcg INHALER IH SCH ×2 (12:52→22:37)
[2022-03-23] MEDS: LISINOPRIL 10 MG TABLET PO SCH (12:52)
[2022-03-23] MEDS: metoPROLOL SUCCINATE 25 MG TAB.SR.24H (FP) PO SCH (12:52)
[2022-03-23] MEDS: ENOXAPARIN NA (PORCINE) 40 MG/0.4 ML DISP.SYRIN SQ SCH (12:53)
[2022-03-23] MEDS: SIMETHICONE 80 MG TAB.CHEW (FP) PO SCH ×2 (12:53→22:32)
[2022-03-23] MEDS: amLODIPine BESYLATE 10 MG TABLET (FP) PO SCH (12:53)
[2022-03-23] MEDS: GABAPENTIN 100 MG CAPSULE PO SCH ×2 (13:28→22:32)
[2022-03-23 14:59] LABS: EPI CELLS >36 /uL (0-25.1); HYALINE CASTS 1 /uL (0-3.1); URINE APPEARANCE CLEAR; URINE BACTERIA 330 /uL (0-1359); URINE BILIRUBIN NEGATIVE (NEGATIVE); URINE COLOR YELLOW; URINE GLUCOSE (UA) NEGATIVE (NEGATIVE); URINE KETONE NEGATIVE (NEGATIVE); URINE LEUK ESTERASE 2+ (NEGATIVE); URINE NITRITE NEGATIVE (NEGATIVE); URINE PROTEIN TRACE (NEGATIVE); URINE RBC 19 /uL (0-23.9); URINE UROBILINOGEN 0.2 mg/dL (0.2-1.0); URINE WBC 93 /uL (0-25.8)
[2022-03-23 15:06] LABS: OPIATES, URI NEGATIVE (NEGATIVE)
[2022-03-23 15:08] LABS: COCAINE, UR NEGATIVE (NEGATIVE); METHADONE, UR NEGATIVE (NEGATIVE); PHENCYCLIDINE,URINE NEGATIVE (NEGATIVE); URINE AMPHETAMINES NEGATIVE (NEGATIVE); URINE BARBITURATES NEGATIVE (NEGATIVE); URINE BENZODIAZEPINES NEGATIVE (NEGATIVE)
[2022-03-23 19:46] VITALS: BMI 32.1
[2022-03-23 20:18] LABS: BASO % 0.3 % (0-2.0); EOS % 6.3 % (0-4.5); HEMATOCRIT 32.6 % (32.4-45.2); HEMOGLOBIN 10.2 GM/dL (10.7-15.3); LYMPH % 18.3 % (8-40); MCH 29.3 pg (25.7-33.7); MCHC 31.4 g/dl (32.0-36.0); MEAN CELL VOLUME 93.1 fl (80-96); MEAN PLT VOLUME 7.9 fl (7.5-11.1); NEUT % 67.1 % (42.8-82.8); PLATELET COUNT 178 10^3/uL (134-434); RDW 18.6 % (11.6-15.6); WHITE BLOOD COUNT 6.9 K/mm3 (4.0-10.0)
[2022-03-23 20:22] LABS: BLOOD UREA NITROGEN 26.4 mg/dL (7-18); MAGNESIUM 2.3 mg/dL (1.8-2.4)
[2022-03-23 20:23] LABS: ALBUMIN 3.7 g/dl (3.4-5.0)
[2022-03-23 20:26] LABS: CREATININE 1.3 mg/dL (0.55-1.3); PHOSPHOROUS 3.8 mg/dL (2.5-4.9)
[2022-03-23 20:27] LABS: BILIRUBIN,TOTAL 0.4 mg/dL (0.2-1); TOT PROT 6.9 g/dl (6.4-8.2)
[2022-03-23] MEDS ORDERED: traZODone HCL 50 MG TABLET (FP) PO SCH (22:00)
[2022-03-23] MEDS ORDERED: DOCUSATE SODIUM 100 MG CAPSULE (FP) PO SCH (22:00)
[2022-03-23] MEDS ORDERED: PRAMIPEXOLE DIHYDROCHLORIDE 0.5 MG TABLET PO SCH (22:00)
[2022-03-24] MEDS ORDERED: ACETAMINOPHEN 325 MG TABLET (FP) PO PRN (02:11)
[2022-03-24] MEDS ORDERED: ACETAMINOPHEN 325 MG TABLET (FP) ONE (02:30)
[2022-03-24] MEDS: GABAPENTIN 100 MG CAPSULE PO SCH ×2 (06:28→14:38)
[2022-03-24] MEDS ORDERED: LEVOTHYROXINE NA 125 MCG TABLET (FP) PO SCH (07:00)
[2022-03-24] MEDS: ENOXAPARIN NA (PORCINE) 40 MG/0.4 ML DISP.SYRIN SQ SCH (09:33)
[2022-03-24] MEDS: PANTOPRAZOLE 40 MG TABLET PO SCH (09:34)
[2022-03-24] MEDS: LISINOPRIL 10 MG TABLET PO SCH (09:34)
[2022-03-24] MEDS: BISACODYL 5 MG TABLET.DR (FP) PO SCH (09:34)
[2022-03-24] MEDS: SIMETHICONE 80 MG TAB.CHEW (FP) PO SCH (09:34)
[2022-03-24] MEDS: metoPROLOL SUCCINATE 25 MG TAB.SR.24H (FP) PO SCH (09:34)
[2022-03-24] MEDS: amLODIPine BESYLATE 10 MG TABLET (FP) PO SCH (09:34)
[2022-03-24] MEDS: BUDESONIDE/FORMETEROL FUMARATE 160/4.5 mcg INHALER IH SCH (09:35)
[2022-03-24] MEDS ORDERED: ARIPiprazole 5 MG TABLET PO SCH (10:00)
[2022-03-24 12:23] VITALS: RESP 18
[2022-03-24 20:07] VITALS: BP 122/70; PULSE 79; TEMP 98.7
== END 2022-03-24 20:05 | DRG 178 ==
LOC: JER 18:45 → JERBED 23:16 → J8W 03-23 14:21 → J5S 03-24 12:20
PROVIDERS: ADMIT Internal Medicine; ATTEND Internal Medicine
DX: U07.1 COVID-19 (principal); I48.92 Unspecified atrial flutter; J98.11 Atelectasis; I10 Essential (primary) hypertension; E78.5 Hyperlipidemia, unspecified; E11.9 Type 2 diabetes mellitus without complications; J45.909 Unspecified asthma, uncomplicated; E03.9 Hypothyroidism, unspecified; D64.9 Anemia, unspecified; K21.9 Gastro-esophageal reflux disease without esophagitis; F20.9 Schizophrenia, unspecified; Z79.4 Long term (current) use of insulin; F17.210 Nicotine dependence, cigarettes, uncomplicated; Z88.0 Allergy status to penicillin
CPT/HCPCS: 0241U-QW; 36415; 71045-TC-FY; 80053; 80307; 81003; 82803; 82962; 83735; 83880; 84100; 84484; 85025; 87086; 87186; 93005; 93010; 99285-25

== ENCOUNTER 2023-02-17 17:43 | Emergency (ER) | payer OTHER ==
[2023-02-17] MEDS ORDERED: ACETAMINOPHEN 325 MG TABLET (FP) PO ONE (18:12)
[2023-02-17] MEDS ORDERED: DIPHTH,PERTUSS(ACELL),TET 0.5 ML DISP.SYRIN IM ONE ×3 (18:12→18:26)
[2023-02-17 18:22] VITALS: BP 154/82; PULSE 78; RESP 18; TEMP 98.4; BMI 31.8
[2023-02-17] MEDS ORDERED: ACETAMINOPHEN 650 MG/20.3 ML ORAL SOLUTION (CUPS) ONE (18:25)
== END 2023-02-18 05:11 ==
LOC: JER 17:43
PROC: 0HQ1XZZ Repair Face Skin, External Approach (ICD-10-PCS; principal; 2023-02-17)
PROC: 3E0234Z Introduction of Serum, Toxoid and Vaccine into Muscle, Percutaneous Approach (ICD-10-PCS; 2023-02-17)
DX: S01.81XA Laceration without foreign body of other part of head, initial encounter (principal); S00.31XA Abrasion of nose, initial encounter; W01.198A Fall on same level from slipping, tripping and stumbling with subsequent striking against other object, initial encounter
CPT/HCPCS: 12013; 70450-TC; 70486-TC; 72125-TC; 90471; 90715; 99284-25